=== PATIENT | male | born 1945 | race Caucasian/White ===

== ENCOUNTER 2017-10-24 09:40 | Inpatient (IN) | payer MEDICARE, BC ==
[~2017-10-24] VITALS: Ht 177.8 cm; Wt 102.5 kg
[2017-10-24] MEDS ORDERED: SODIUM CHLORIDE 0.9% 1,000 ML IV ONE (10:02)
[2017-10-24 10:06] VITALS: BP 151/89
[2017-10-24] MEDS ORDERED: NITR0.4T SL (10:27)
[2017-10-24] MEDS ORDERED: OMEG-76 PO (10:27)
[2017-10-24] MEDS ORDERED: VITA1TAB29 PO (10:27)
[2017-10-24] MEDS ORDERED: PRAV10TA2 PO (10:27)
[2017-10-24] MEDS ORDERED: HYDR12.53 PO (10:27)
[2017-10-24] MEDS ORDERED: LISI-170 PO (10:27)
[2017-10-24] MEDS ORDERED: ASPI-496 PO (10:27)
[2017-10-24] MEDS ORDERED: PLEASE ENTER HEIGHT AND WEIGHT MC SCH (10:30)
[2017-10-24] MEDS ORDERED: FENTANYL PF 100 MCG/2ML ONE (11:47)
[2017-10-24] MEDS ORDERED: MIDAZOLAM 1 MG/ML, 5ML ONE (11:47)
[2017-10-24] MEDS ORDERED: LIDOCAINE 2%, 2ML ONE (11:48)
[2017-10-24] MEDS ORDERED: TICAGRELOR 90 MG TABLET ONE (11:48)
[2017-10-24] MEDS ORDERED: HEPARIN 1,000 UNITS/ML, 10ML ONE (11:48)
[2017-10-24] MEDS ORDERED: VERAPAMIL 2.5 MG/ML, 2ML ONE (11:48)
[2017-10-24] MEDS ORDERED: BIVALIRUDIN 250 MG ONE (11:48)
[2017-10-24] MEDS: SODIUM CHLORIDE 0.9% 1,000 ML IV SCH ×3 (12:39→22:42)
[2017-10-24] MEDS ORDERED: BISACODYL 5 MG EC TABLET PO PRN (13:00)
[2017-10-24] MEDS ORDERED: INSULIN LISPRO 100 UNITS/ML, PEN SQ-INSULIN SCH (13:00)
[2017-10-24] MEDS ORDERED: ACETAMINOPHEN 325 MG TABLET PO PRN ×2 (13:00)
[2017-10-24] MEDS ORDERED: BISACODYL 10 MG SUPP PR PRN (13:00)
[2017-10-24] MEDS ORDERED: ZOLPIDEM 5MG TABLET PO PRN (13:00)
[2017-10-24] MEDS ORDERED: MAGNESIUM HYDROXIDE 8%, 30ML UDC PO PRN (13:00)
[2017-10-24] MEDS ORDERED: NITROGLYCERIN 0.4 MG BOTTLE (25 TABS) SL PRN (13:00)
[2017-10-24] MEDS ORDERED: ONDANSETRON 2MG/ML, 2ML IVPush PRN (13:00)
[2017-10-24 13:30] LABS: BASOPHILS # (AUTO) 0.03 x10^3/uL (0-0.1); BASOPHILS % (AUTO) 0 % (0-1); EOSINOPHILS # (AUTO) 0.48 x10^3/uL (0-0.4); EOSINOPHILS % (AUTO) 6 % (1-7); LYMPHOCYTES # (AUTO) 1.72 x10^3/uL (1-3.4); LYMPHOCYTES % (AUTO) 22 % (22-44); MD NO; MEAN CORPUSCULAR HEMOGLOBIN 31.3 pg (27.5-34.5); MEAN CORPUSCULAR HGB CONC 34.1 g/dL (33.2-36.2); MEAN CORPUSCULAR VOLUME 91.9 fL (81-97); MEAN PLATELET VOLUME 9.1 fL (7.4-10.4); MONOCYTES # (AUTO) 0.62 x10^3/uL (0.2-0.8); MONOCYTES % (AUTO) 8 % (2-9); NEUTROPHILS # (AUTO) 5.02 x10^3/uL (1.8-6.8); NEUTROPHILS % (AUTO) 64 % (42-75); PLATELET COUNT 262 x10^3/uL (130-400); RED BLOOD COUNT 4.49 x10^6/uL (4.38-5.82); RED CELL DISTRIBUTION WIDTH 13.3 % (9.4-14.8)
[2017-10-24 13:32] LABS: INTERNATIONAL NORMALIZED RATIO 1.11 (0.93-1.1); PROTHROMBIN TIME 11.4 Seconds (9.6-11.5)
[2017-10-24 13:35] LABS: ALANINE AMINOTRANSFERASE 26 U/L (12-78); ALBUMIN 3.7 g/dL (3.4-5.0); ANION GAP 8 mmol/L (5-15); CALCIUM 8.7 mg/dL (8.5-10.1); CHLORIDE 108 mmol/L (98-107); CREATININE 0.88 mg/dL (0.7-1.3)
[2017-10-24 13:38] LABS: ALKALINE PHOSPHATASE 71 U/L (45-117)
[2017-10-24 14:21] LABS: HEMOGLOBIN A1C 6.6 % (4.2-6.3)
[2017-10-24] MEDS ORDERED: ALBUTEROL SULFATE 2.5 MG/3 ML ONE (15:57)
[2017-10-24 17:48] LABS: MICROSCOPIC NOT IND
[2017-10-24 18:46] VITALS: BP 115/72
[2017-10-24] MEDS ORDERED: SODIUM CHLORIDE FLUSH 10ML SYR IVF SCH (21:00)
[2017-10-24] MEDS: PRAVASTATIN 20 MG TABLET PO SCH (22:34)
[2017-10-24] MEDS: LISINOPRIL 20 MG TABLET PO SCH (22:35)
[2017-10-24 22:43] VITALS: BP 135/75
[2017-10-24] MEDS: CHLORHEXIDINE 15 ML BOTTLE MM PRN (23:10)
[2017-10-24] MEDS: MUPIROCIN OINT 2%, 22GM TP SCH (23:10)
[2017-10-25 04:09] VITALS: BP 110/70
[2017-10-25 04:10] VITALS: BP 119/74
[2017-10-25] MEDS: MUPIROCIN OINT 2%, 22GM TP SCH ×2 (04:51→23:32)
[2017-10-25] MEDS: CHLORHEXIDINE 15 ML BOTTLE MM PRN (04:51)
[2017-10-25] MEDS ORDERED: METOPROLOL TARTRATE 25 MG TABLET PO ONE (05:00)
[2017-10-25 05:52] LABS: CHLORIDE 106 mmol/L (98-107)
[2017-10-25 05:57] LABS: ALBUMIN 3.7 g/dL (3.4-5.0); ANION GAP 10 mmol/L (5-15); CREATININE 1.09 mg/dL (0.7-1.3)
[2017-10-25] MEDS ORDERED: MIDAZOLAM 10MG/2 ML ONE (06:32)
[2017-10-25] MEDS ORDERED: SUFentanil 50 MCG/ML, 5ML ONE (06:32)
[2017-10-25] MEDS ORDERED: HEPARIN 1,000 UNITS/ML, 10ML ONE (06:56)
[2017-10-25] MEDS ORDERED: PAPAVERINE 30 MG/ML, 2ML ONE (06:56)
[2017-10-25] MEDS ORDERED: CEFUROXIME 1.5 GM in SODIUM CHLORIDE 0.9% 50 ML IVPB PRN (07:30)
[2017-10-25] MEDS ORDERED: DEXMEDETOMIDINE 200 MCG in SODIUM CHLORIDE 0.9% 48 ML IV SCH (07:30)
[2017-10-25] MEDS ORDERED: VANCOMYCIN 1,400 MG in SODIUM CHLORIDE 0.9% 250 ML IVPB PRN (07:30)
[2017-10-25] MEDS ORDERED: POTASSIUM CHLORIDE 80 MEQ, SODIUM BICARBONATE 8.4% 10 MEQ, MAGNESIUM SULFATE 0.5 GM, LI... IV PRN (07:30)
[2017-10-25] MEDS ORDERED: REGULAR INSULIN 62.5 UNITS in SODIUM CHLORIDE 0.9% 249.375 ML IV PRN ×2 (07:30→11:17)
[2017-10-25] MEDS ORDERED: PHENYLEPHRINE 10 MG in SODIUM CHLORIDE 0.9% 249 ML IV PRN ×2 (07:30→11:17)
[2017-10-25] MEDS ORDERED: MANNITOL PMX 20% 500 ML IVPB PRN (07:30)
[2017-10-25] MEDS ORDERED: EPINEPHRINE 2 MG in SODIUM CHLORIDE 0.9% 248 ML IV SCH (07:30)
[2017-10-25] MEDS ORDERED: ALBUMIN HUMAN 5% 500 ML IV PRN (07:30)
[2017-10-25] MEDS ORDERED: VANCOMYCIN 1,400 MG in SODIUM CHLORIDE 0.9% 250 ML IV PRN (07:30)
[2017-10-25] MEDS ORDERED: ROCURONIUM 10MG/ML,5ML ONE ×3 (08:01→10:26)
[2017-10-25] MEDS ORDERED: AMINOCAPROIC ACID 250 MG/ML, 20ML ONE ×2 (08:01)
[2017-10-25] MEDS ORDERED: PROTAMINE SULFATE 10 MG/ML, 25ML ONE ×2 (08:01)
[2017-10-25] MEDS ORDERED: PROPOFOL 10 MG/ML, 20ML ONE (08:01)
[2017-10-25] MEDS ORDERED: HEPARIN 1,000 UNITS/ML, 10ML IV ONE (08:02)
[2017-10-25] MEDS ORDERED: VASOPRESSIN 20 UNIT/ML, 1ML ONE (08:02)
[2017-10-25] MEDS ORDERED: PAPAVERINE 30 MG/ML, 2ML IVPush ONE (08:03)
[2017-10-25] MEDS: MULTIVITS,STRESS FORMULA 1 TABLET PO SCH (09:00)
[2017-10-25] MEDS: LISINOPRIL 20 MG TABLET PO SCH ×2 (09:00→21:00)
[2017-10-25] MEDS: ASPIRIN 81 MG TABLET EC PO SCH (09:00)
[2017-10-25] MEDS: HYDROCHLOROTHIAZIDE 12.5 MG CAPSULE PO SCH (09:00)
[2017-10-25] MEDS: OMEGA-3/FISH OIL CAPSULE PO SCH (09:00)
[2017-10-25] MEDS: DOCUSATE 100 MG CAPSULE PO SCH ×2 (09:00→21:55)
[2017-10-25] MEDS ORDERED: CALCIUM CHLORIDE 10%, 10ML SYR ONE (10:41)
[2017-10-25] MEDS ORDERED: LIDOCAINE 2% 100MG/5ML SYRINGE ONE (11:03)
[2017-10-25] MEDS ORDERED: SODIUM BICARB 8.4%, 50ML SYRINGE ONE (11:03)
[2017-10-25] MEDS ORDERED: ALBUMIN HUMAN 25% 50 ML ONE (11:04)
[2017-10-25] MEDS ORDERED: HEPARIN 1,000 UNITS/ML, 30ML ONE ×2 (11:04)
[2017-10-25] MEDS ORDERED: VASOPRESSIN 50 UNIT in SODIUM CHLORIDE 0.9% 247.5 ML IV PRN (11:17)
[2017-10-25] MEDS ORDERED: NITROGLYCERIN/D5W PMX 250 ML IV PRN (11:17)
[2017-10-25] MEDS ORDERED: DEXMEDETOMIDINE 200 MCG in SODIUM CHLORIDE 0.9% 48 ML IV PRN (11:17)
[2017-10-25] MEDS ORDERED: SODIUM CHLORIDE 0.9% 1,000 ML IV PRN (11:17)
[2017-10-25] MEDS ORDERED: DOBUTAMINE 250 MG in SODIUM CHLORIDE 0.9% 230 ML IV PRN (11:17)
[2017-10-25] MEDS ORDERED: BISACODYL 5 MG EC TABLET PO PRN (11:30)
[2017-10-25] MEDS ORDERED: PROCHLORPERAZINE 5 MG/ML, 2ML IVPush PRN (11:30)
[2017-10-25] MEDS ORDERED: BISACODYL 10 MG SUPP PR PRN (11:30)
[2017-10-25] MEDS ORDERED: DEXTROSE 4 GM TAB.CHEW PO PRN (11:30)
[2017-10-25] MEDS ORDERED: GLUCAGON 1 MG IM PRN (11:30)
[2017-10-25] MEDS ORDERED: SODIUM BICARB 8.4%, 50ML SYRINGE IV PRN (11:30)
[2017-10-25] MEDS ORDERED: morphine SULFATE 10 MG/ML, 1ML IVPush PRN (11:30)
[2017-10-25] MEDS ORDERED: LACTATED RINGERS 1,000 ML IV PRN (11:30)
[2017-10-25] MEDS ORDERED: ACETAMINOPHEN 325 MG TABLET PO PRN (11:30)
[2017-10-25] MEDS ORDERED: INSULIN REGULAR 100 UNITS/ML, 3ML VIAL IVPush PRN (11:30)
[2017-10-25] MEDS: KSCALE TO 4.5 IV SCH ×4 (11:30→23:30)
[2017-10-25] MEDS ORDERED: ONDANSETRON 2MG/ML, 2ML IVPush PRN (11:30)
[2017-10-25] MEDS ORDERED: MIDAZOLAM 1 MG/ML, 5ML IVPush PRN (11:30)
[2017-10-25] MEDS ORDERED: DEXTROSE 50%, 50ML SYRINGE IVPush PRN (11:30)
[2017-10-25] MEDS ORDERED: ACETAMINOPHEN 650 MG SUPP PR PRN (11:30)
[2017-10-25 11:57] LABS: GLUCOSE BY BLOOD GAS ANALYZER 135 mg/dL (70-110); HEMOGLOBIN BY BLOOD GAS ANALYZ 11.1 g/dL (14.0-18.0); POTASSIUM BY BLOOD GAS ANALYZR 3.5 mmol/L (3.6-5.5)
[2017-10-25 11:58] LABS: FIO2 60 %
[2017-10-25] MEDS ORDERED: POTASSIUM CHLORIDE PMX 100 ML IV ONE (13:00)
[2017-10-25] MEDS: MAGNESIUM SULFATE 1 GM in SODIUM CHLORIDE 0.9% 50 ML IVPB SCH (13:24)
[2017-10-25] MEDS: SODIUM CHLORIDE 0.9% 1,000 ML IV SCH ×2 (13:24→21:49)
[2017-10-25] MEDS ORDERED: MORPHINE SULFATE 4 MG/ML, 1ML ONE (15:57)
[2017-10-25] MEDS: HYDROcodone/APAP 5/325 TABLET PO PRN ×2 (15:59→21:46)
[2017-10-25] MEDS: INSULIN LISPRO 100 UNITS/ML, PEN SQ-INSULIN SCH ×3 (16:00→23:44)
[2017-10-25] MEDS: OXYcodone IR 5MG TABLET PO PRN (18:51)
[2017-10-25] MEDS: EPINEPHRINE 2 MG in SODIUM CHLORIDE 0.9% 248 ML IV PRN ×2 (18:54→23:53)
[2017-10-25] MEDS ORDERED: MUPIROCIN OINT 2%, 22GM NAS SCH (21:00)
[2017-10-25] MEDS: VANCOMYCIN 1,400 MG in SODIUM CHLORIDE 0.9% 250 ML IVPB SCH (21:48)
[2017-10-25] MEDS: PRAVASTATIN 20 MG TABLET PO SCH (21:55)
[2017-10-26] MEDS: OXYcodone IR 5MG TABLET PO PRN ×4 (01:20→19:25)
[2017-10-26 03:58] VITALS: BP 118/52
[2017-10-26] MEDS: INSULIN LISPRO 100 UNITS/ML, PEN SQ-INSULIN SCH ×5 (04:00→21:00)
[2017-10-26] MEDS: HYDROcodone/APAP 5/325 TABLET PO PRN ×3 (04:05→16:35)
[2017-10-26] MEDS: KSCALE TO 4.5 IV SCH (05:30)
[2017-10-26] MEDS: SODIUM CHLORIDE 0.9% 1,000 ML IV SCH (05:43)
[2017-10-26 06:08] LABS: CHLORIDE 112 mmol/L (98-107)
[2017-10-26 06:31] LABS: BASOPHILS # (AUTO) 0.01 x10^3/uL (0-0.1); BASOPHILS % (AUTO) 0 % (0-1); EOSINOPHILS % (AUTO) 0 % (1-7); LYMPHOCYTES # (AUTO) 0.65 x10^3/uL (1-3.4); LYMPHOCYTES % (AUTO) 8 % (22-44); MD NO; MEAN CORPUSCULAR HEMOGLOBIN 30.9 pg (27.5-34.5); MEAN CORPUSCULAR HGB CONC 33.6 g/dL (33.2-36.2); MEAN CORPUSCULAR VOLUME 91.8 fL (81-97); MEAN PLATELET VOLUME 9.2 fL (7.4-10.4); MONOCYTES # (AUTO) 0.93 x10^3/uL (0.2-0.8); MONOCYTES % (AUTO) 11 % (2-9); NEUTROPHILS % (AUTO) 81 % (42-75); PLATELET COUNT 149 x10^3/uL (130-400); RED BLOOD COUNT 3.14 x10^6/uL (4.38-5.82); RED CELL DISTRIBUTION WIDTH 13.4 % (9.4-14.8)
[2017-10-26 07:08] LABS: INTERNATIONAL NORMALIZED RATIO 1.2 (0.93-1.1)
[2017-10-26 07:11] LABS: PROTHROMBIN TIME 12.3 Seconds (9.6-11.5)
[2017-10-26 07:16] LABS: ALBUMIN 2.9 g/dL (3.4-5.0); CALCIUM 7.3 mg/dL (8.5-10.1); CREATININE 0.76 mg/dL (0.7-1.3)
[2017-10-26] MEDS: ASPIRIN 81 MG TABLET EC PO SCH ×2 (07:27→09:21)
[2017-10-26 07:58] LABS: ANION GAP 7 mmol/L (5-15)
[2017-10-26] MEDS: LISINOPRIL 20 MG TABLET PO SCH (09:00)
[2017-10-26] MEDS ORDERED: SODIUM CHLORIDE FLUSH 10ML SYR IVF SCH (09:00)
[2017-10-26] MEDS: HYDROCHLOROTHIAZIDE 12.5 MG CAPSULE PO SCH (09:00)
[2017-10-26] MEDS: METOPROLOL TARTRATE 25 MG TABLET PO/NG SCH ×2 (09:00→21:00)
[2017-10-26] MEDS: MULTIVITS,STRESS FORMULA 1 TABLET PO SCH (09:21)
[2017-10-26] MEDS: OMEGA-3/FISH OIL CAPSULE PO SCH (09:21)
[2017-10-26] MEDS: DOCUSATE 100 MG CAPSULE PO SCH ×2 (09:21→21:40)
[2017-10-26] MEDS: MUPIROCIN OINT 2%, 22GM TP SCH ×2 (09:27→21:54)
[2017-10-26] MEDS: VANCOMYCIN 1,400 MG in SODIUM CHLORIDE 0.9% 250 ML IVPB SCH (09:27)
[2017-10-26] MEDS ORDERED: MAGNESIUM HYDROXIDE 8%, 30ML UDC PO PRN (11:30)
[2017-10-26] MEDS: MAGNESIUM SULFATE 1 GM in SODIUM CHLORIDE 0.9% 50 ML IVPB SCH (14:01)
[2017-10-26] MEDS: CHLORHEXIDINE 15 ML BOTTLE MM SCH (14:03)
[2017-10-26 19:22] VITALS: BP 104/65
[2017-10-26 21:39] VITALS: BP_SYST 90; BP_SYST 96; BP_DIAS 61; BP_DIAS 62
[2017-10-26] MEDS: ATORVASTATIN 40 MG TABLET PO SCH (21:40)
[2017-10-26] MEDS: SODIUM CHLORIDE FLUSH 10ML SYR IVF SCH (21:43)
[2017-10-27] MEDS: CHLORHEXIDINE 15 ML BOTTLE MM SCH ×3 (00:15→22:37)
[2017-10-27] MEDS: HYDROcodone/APAP 5/325 TABLET PO PRN ×4 (00:28→21:30)
[2017-10-27 00:41] VITALS: BP 100/63
[2017-10-27] MEDS: OXYcodone IR 5MG TABLET PO PRN (05:05)
[2017-10-27 05:37] LABS: BASOPHILS # (AUTO) 0.02 x10^3/uL (0-0.1); BASOPHILS % (AUTO) 0 % (0-1); EOSINOPHILS # (AUTO) 0.16 x10^3/uL (0-0.4); EOSINOPHILS % (AUTO) 2 % (1-7); LYMPHOCYTES # (AUTO) 0.85 x10^3/uL (1-3.4); LYMPHOCYTES % (AUTO) 10 % (22-44); MD NO; MEAN CORPUSCULAR HEMOGLOBIN 31.2 pg (27.5-34.5); MEAN CORPUSCULAR HGB CONC 33.9 g/dL (33.2-36.2); MEAN CORPUSCULAR VOLUME 92.1 fL (81-97); MEAN PLATELET VOLUME 8.6 fL (7.4-10.4); MONOCYTES # (AUTO) 0.92 x10^3/uL (0.2-0.8); MONOCYTES % (AUTO) 11 % (2-9); NEUTROPHILS # (AUTO) 6.36 x10^3/uL (1.8-6.8); NEUTROPHILS % (AUTO) 77 % (42-75); PLATELET COUNT 129 x10^3/uL (130-400); RED BLOOD COUNT 3.06 x10^6/uL (4.38-5.82); RED CELL DISTRIBUTION WIDTH 13.3 % (9.4-14.8)
[2017-10-27 05:41] LABS: INTERNATIONAL NORMALIZED RATIO 1.17 (0.93-1.1)
[2017-10-27 05:45] LABS: CHLORIDE 108 mmol/L (98-107)
[2017-10-27 05:49] LABS: ANION GAP 6 mmol/L (5-15); CALCIUM 8.3 mg/dL (8.5-10.1)
[2017-10-27] MEDS: INSULIN LISPRO 100 UNITS/ML, PEN SQ-INSULIN SCH ×4 (07:00→21:00)
[2017-10-27 07:15] VITALS: BP 117/71
[2017-10-27] MEDS: ENOXAPARIN 40 MG/0.4 ML SQ SCH (08:31)
[2017-10-27] MEDS: ASPIRIN 81 MG TABLET EC PO SCH (08:31)
[2017-10-27] MEDS: OMEGA-3/FISH OIL CAPSULE PO SCH (08:31)
[2017-10-27] MEDS: FUROSEMIDE 40 MG/4 ML IV SCH (08:31)
[2017-10-27] MEDS: MULTIVITS,STRESS FORMULA 1 TABLET PO SCH (08:31)
[2017-10-27] MEDS: GUAIFENESIN ER 600 MG TABLET PO SCH ×2 (08:31→22:36)
[2017-10-27] MEDS: MUPIROCIN OINT 2%, 22GM TP SCH ×2 (08:32→22:36)
[2017-10-27] MEDS: METOPROLOL TARTRATE 25 MG TABLET PO/NG SCH ×2 (08:32→22:36)
[2017-10-27] MEDS: DOCUSATE 100 MG CAPSULE PO SCH ×2 (08:32→22:36)
[2017-10-27] MEDS: SODIUM CHLORIDE FLUSH 10ML SYR IVF SCH ×2 (08:33→22:36)
[2017-10-27] MEDS: POTASSIUM CHLORIDE 20 MEQ TAB.ER.PRT PO SCH (10:38)
[2017-10-27 12:01] VITALS: BP 106/64
[2017-10-27] MEDS: MAGNESIUM SULFATE 1 GM in SODIUM CHLORIDE 0.9% 50 ML IVPB SCH (13:57)
[2017-10-27 19:34] VITALS: BP 116/72
[2017-10-27] MEDS: ATORVASTATIN 40 MG TABLET PO SCH (22:36)
[2017-10-28 01:03] VITALS: BP 109/70
[2017-10-28 04:15] LABS: BASOPHILS # (AUTO) 0.03 x10^3/uL (0-0.1); BASOPHILS % (AUTO) 0 % (0-1); EOSINOPHILS # (AUTO) 0.17 x10^3/uL (0-0.4); EOSINOPHILS % (AUTO) 2 % (1-7); LYMPHOCYTES # (AUTO) 0.94 x10^3/uL (1-3.4); LYMPHOCYTES % (AUTO) 13 % (22-44); MD NO; MEAN CORPUSCULAR HEMOGLOBIN 30.6 pg (27.5-34.5); MEAN CORPUSCULAR HGB CONC 33.4 g/dL (33.2-36.2); MEAN CORPUSCULAR VOLUME 91.7 fL (81-97); MEAN PLATELET VOLUME 8.9 fL (7.4-10.4); MONOCYTES # (AUTO) 0.75 x10^3/uL (0.2-0.8); MONOCYTES % (AUTO) 11 % (2-9); NEUTROPHILS # (AUTO) 5.28 x10^3/uL (1.8-6.8); NEUTROPHILS % (AUTO) 74 % (42-75); PLATELET COUNT 146 x10^3/uL (130-400); RED BLOOD COUNT 3.05 x10^6/uL (4.38-5.82); RED CELL DISTRIBUTION WIDTH 13.1 % (9.4-14.8)
[2017-10-28 04:28] LABS: ANION GAP 5 mmol/L (5-15); CALCIUM 8.2 mg/dL (8.5-10.1); CHLORIDE 107 mmol/L (98-107); CREATININE 0.76 mg/dL (0.7-1.3)
[2017-10-28] MEDS: HYDROcodone/APAP 5/325 TABLET PO PRN ×2 (05:22→12:36)
[2017-10-28 06:45] VITALS: BP 147/83
[2017-10-28] MEDS: INSULIN LISPRO 100 UNITS/ML, PEN SQ-INSULIN SCH ×2 (07:00→11:00)
[2017-10-28] MEDS: ENOXAPARIN 40 MG/0.4 ML SQ SCH (08:28)
[2017-10-28] MEDS: ASPIRIN 81 MG TABLET EC PO SCH (08:28)
[2017-10-28] MEDS: CLOPIDOGREL 75 MG TABLET PO SCH (08:28)
[2017-10-28] MEDS: OMEGA-3/FISH OIL CAPSULE PO SCH (08:29)
[2017-10-28] MEDS: METOPROLOL TARTRATE 25 MG TABLET PO/NG SCH ×2 (08:29→20:42)
[2017-10-28] MEDS: DOCUSATE 100 MG CAPSULE PO SCH ×3 (08:29→20:42)
[2017-10-28] MEDS: GUAIFENESIN ER 600 MG TABLET PO SCH ×2 (08:29→20:42)
[2017-10-28] MEDS: POTASSIUM CHLORIDE 20 MEQ TAB.ER.PRT PO SCH (08:29)
[2017-10-28] MEDS: LISINOPRIL 10 MG TABLET PO SCH (08:29)
[2017-10-28] MEDS: MULTIVITS,STRESS FORMULA 1 TABLET PO SCH (08:30)
[2017-10-28] MEDS: FUROSEMIDE 40 MG/4 ML IV SCH (08:30)
[2017-10-28] MEDS: SODIUM CHLORIDE FLUSH 10ML SYR IVF SCH ×2 (08:31→20:42)
[2017-10-28] MEDS: MUPIROCIN OINT 2%, 22GM TP SCH ×2 (09:20→20:43)
[2017-10-28 13:31] VITALS: BP 134/84
[2017-10-28] MEDS: OXYcodone IR 5MG TABLET PO PRN ×3 (14:26→23:15)
[2017-10-28 19:18] VITALS: BP 110/73
[2017-10-28] MEDS: ATORVASTATIN 40 MG TABLET PO SCH (20:42)
[2017-10-29 00:23] VITALS: BP 132/77
[2017-10-29 05:43] LABS: BASOPHILS # (AUTO) 0.01 x10^3/uL (0-0.1); BASOPHILS % (AUTO) 0 % (0-1); EOSINOPHILS # (AUTO) 0.22 x10^3/uL (0-0.4); EOSINOPHILS % (AUTO) 3 % (1-7); LYMPHOCYTES # (AUTO) 0.98 x10^3/uL (1-3.4); LYMPHOCYTES % (AUTO) 15 % (22-44); MD NO; MEAN CORPUSCULAR HEMOGLOBIN 31.3 pg (27.5-34.5); MEAN CORPUSCULAR HGB CONC 34.2 g/dL (33.2-36.2); MEAN CORPUSCULAR VOLUME 91.4 fL (81-97); MEAN PLATELET VOLUME 8.5 fL (7.4-10.4); MONOCYTES # (AUTO) 0.71 x10^3/uL (0.2-0.8); MONOCYTES % (AUTO) 11 % (2-9); NEUTROPHILS # (AUTO) 4.73 x10^3/uL (1.8-6.8); NEUTROPHILS % (AUTO) 71 % (42-75); PLATELET COUNT 196 x10^3/uL (130-400); RED CELL DISTRIBUTION WIDTH 12.8 % (9.4-14.8)
[2017-10-29 05:45] LABS: CHLORIDE 104 mmol/L (98-107)
[2017-10-29 06:04] LABS: ANION GAP 9 mmol/L (5-15); CREATININE 0.82 mg/dL (0.7-1.3)
[2017-10-29 07:10] VITALS: BP 128/77
[2017-10-29] MEDS ORDERED: LISI-170 PO (08:24)
[2017-10-29] MEDS ORDERED: CLOP75TA PO (08:24)
[2017-10-29] MEDS ORDERED: POTA20TA6 PO (08:24)
[2017-10-29] MEDS ORDERED: ATOR40TA78 PO (08:24)
[2017-10-29] MEDS ORDERED: FURO40TA6 PO (08:24)
[2017-10-29] MEDS ORDERED: METO25TA35 PO/NG (08:24)
[2017-10-29] MEDS ORDERED: OXYC5TAB3 PO (08:24)
[2017-10-29] MEDS: GUAIFENESIN ER 600 MG TABLET PO SCH (09:03)
[2017-10-29] MEDS: OMEGA-3/FISH OIL CAPSULE PO SCH (09:03)
[2017-10-29] MEDS: ENOXAPARIN 40 MG/0.4 ML SQ SCH (09:03)
[2017-10-29] MEDS: FUROSEMIDE 40 MG/4 ML IV SCH (09:03)
[2017-10-29] MEDS: ASPIRIN 81 MG TABLET EC PO SCH (09:04)
[2017-10-29] MEDS: LISINOPRIL 10 MG TABLET PO SCH (09:04)
[2017-10-29] MEDS: POTASSIUM CHLORIDE 20 MEQ TAB.ER.PRT PO SCH (09:04)
[2017-10-29] MEDS: DOCUSATE 100 MG CAPSULE PO SCH (09:04)
[2017-10-29] MEDS: CLOPIDOGREL 75 MG TABLET PO SCH (09:04)
[2017-10-29] MEDS: METOPROLOL TARTRATE 25 MG TABLET PO/NG SCH (09:04)
[2017-10-29] MEDS: SODIUM CHLORIDE FLUSH 10ML SYR IVF SCH (09:05)
[2017-10-29] MEDS: MULTIVITS,STRESS FORMULA 1 TABLET PO SCH (09:17)
[2017-10-29] MEDS: HYDROcodone/APAP 5/325 TABLET PO PRN (09:17)
[2017-10-29] MEDS: MUPIROCIN OINT 2%, 22GM TP SCH (09:21)
== END 2017-10-29 12:13 | disposition home or self-care (01) | DRG 233 ==
LOC: CACL 09:40 → ORIP 12:54 → 5SO 15:35 → CSU 10-25 09:31 → 5SO 10-26 18:57 → DCLOUNGE 10-29 11:50
PROVIDERS: ADMIT Internal Medicine Cardiovascular Disease; ATTEND Internal Medicine Cardiovascular Disease
PROC: 4A023N7 Measurement of Cardiac Sampling and Pressure, Left Heart, Percutaneous Approach (ICD-10-PCS; principal; 2017-10-24)
PROC: B2111ZZ Fluoroscopy of Multiple Coronary Arteries using Low Osmolar Contrast (ICD-10-PCS; 2017-10-24)
PROC: B2151ZZ Fluoroscopy of Left Heart using Low Osmolar Contrast (ICD-10-PCS; 2017-10-24)
PROC: 02100Z9 Bypass Coronary Artery, One Artery from Left Internal Mammary, Open Approach (ICD-10-PCS; 2017-10-25)
PROC: 021209W Bypass Coronary Artery, Three Arteries from Aorta with Autologous Venous Tissue, Open Approach (ICD-10-PCS; 2017-10-25)
PROC: 06BP4ZZ Excision of Right Saphenous Vein, Percutaneous Endoscopic Approach (ICD-10-PCS; 2017-10-25)
PROC: 5A1221Z Performance of Cardiac Output, Continuous (ICD-10-PCS; 2017-10-25)
DX: I25.10 Atherosclerotic heart disease of native coronary artery without angina pectoris (principal); I50.31 Acute diastolic (congestive) heart failure; E78.00 Pure hypercholesterolemia, unspecified; E78.5 Hyperlipidemia, unspecified; I11.0 Hypertensive heart disease with heart failure; I25.82 Chronic total occlusion of coronary artery; Z87.891 Personal history of nicotine dependence
CPT/HCPCS: 36415; 36600; 71045; 71046; 80048; 80053; 81003; 82040; 82330; 82800; 82803; 82810; 82947; 82962; 83036; 83735; 84132; 84295; 85014; 85018; 85025; 85049; 85347; 85610; 85730; 86850; 86900; 86923; 87081; 93005; 93306; 93312; 93321; 93325; 93458; 93880; 93970; 94002; 94060; 94150; 99156; C1769; C1894; J0583; J0697; J1644; J1650; J1815; J1940; J2250; J2405; J2704; J2720; J3010; J3370; J3475; J3480; J3490; P9045; P9047; C1751; C1760; J0171; J2270; J2370; J2440; J7030; J7050; Q9967